=== PATIENT | female | born 1960 | race Caucasian/White ===

== ENCOUNTER 2017-04-30 08:48 | Emergency (ER) | payer OTHER ==
--- NOTE | 2017-04-30 08:57 | EDPHY ---
H & P HPI/ROS: HPI CHIEF COMPLAINT: Right dorsal wrist laceration HISTORY OF PRESENT ILLNESS: This patient 56-year-old female, significant past medical history for hepatitis-C untreated, daily tobacco use, presents emergency room as she sustained a dorsal wrist laceration 3 cm in horizontal length. She sustained this at work while hitting or wrist on a shelf. No other injuries. Her tetanus shot is not up-to-date. This happened at 2:00 a.m. or approximately 7 hours ago. She decided come the emergency room as a kept bothering her and was somewhat gaping when she thought it may need sutures. Past Medical History: Hepatitis-C untreated Past Surgical History: Denies recent surgical history Social History: Denies daily use of drugs, alcohol, does smoke tobacco daily Family History: Noncontributory ROS REVIEW OF SYSTEMS: A comprehensive 10 point review of systems is otherwise negative aside from elements mentioned in the history of present illness. Exam Constitutional appears well nontoxic triage nursing summary reviewed, vital signs reviewed, awake/alert. Eyes normal conjunctivae and sclera, EOMI, PERRLA. HENT normal inspection, atraumatic, moist mucus membranes, no epistaxis, neck supple/ no meningismus, no raccoon eyes. Respiratory clear to auscultation bilaterally, normal breath sounds, no respiratory distress, no wheezing. Cardiovascular rate normal, regular rhythm, no murmur, no edema, distal pulses normal. Gastrointestinal soft, non-tender, no rebound, no guarding, normal bowel sounds, no distension, no pulsatile mass. Genitourinary no CVA tenderness. Musculoskeletal no midline vertebral tenderness, full range of motion, no calf swelling, no tenderness of extremities, no meningismus, good pulses, neurovascularly intact. Skin dorsal right wrist: 3 cm horizontal laceration without arterial injury or tendon involvement, distally she is neurovascular intact with good radial pulse, good school occupational therapist strength, good cap refill, full range of motion, no tendon involvement pink, warm, & dry, no rash. Neurologic awake, alert and oriented x 3, AAOx3, moves all 4 extremities equally, motor intact, sensory intact, CN II-XII intact, normal cerebellar, normal vision, normal speech. Psychiatric normal mood/affect. Heme/Lymph/Immune no lymphadenopathy. Differential Diagnosis: Includes but is not limited to in a particular order: Soft tissue injury, wrist laceration, need for wound care, need for updated tetanus, delayed presentation of wrist laceration Medical Decision Making: Plan for this patient copious irrigation clean out of her wound as it is a delayed presentation, she will have sutures placed under sterile conditions performed by me. Tetanus shot will be updated. She will be started on antibiotics prophylactically due to delayed presentation. Re-evaluation: Laceration Repair Procedure: Verbal Consent was obtained, Under sterile conditions, The patient had lidocaine with epinephrine used approximately 3ccs to local anesthetize the Right Dorsal wrist 3cm Laceration. The wound was copiously irrigated with sterile fluid, the wound was explored for foreign bodies there were none visualized, the wound was explored with a sterile glove to the base. There are no deep structures involved, including no arterial injury. THREE 5.O PROLENE interrupted Sutures were placed in this patient's laceration. She had good close approximation of the wound edges. She Tolerated this well. Patient understands return emergency room in 10-12 days to have sutures removed. Also understands there is risk of this getting infected. Keep wound clean dry and protected. Take antibiotics as prescribed. Return emergency room if there is worsening symptoms or signs of infection. Source: Patient Constitutional: Initial Vital Signs Temperature (C) 36.9 C 04/30/17 08:54 Heart Rate 84 04/30/17 08:54 Respiratory Rate 20 04/30/17 08:54 Blood Pressure 117/65 04/30/17 08:54 O2 Sat (%) 96 04/30/17 08:54 O2 Delivery Mode Room Air Allergies/Adverse Reactions: No Known Allergies Allergy (Unverified 04/30/17 08:57) Home Medications: Medication Instructions Recorded Cephalexin [Keflex] 500 mg PO Q6H #28 cap 04/30/17 Departure - Departure Disposition: Home, Routine, Self-Care Clinical Impression: Laceration Condition: Good Instructions: Laceration (ED), Care For Your Stitches (ED) Additional Instructions: 1. Monitor your wound closely for infection this includes redness, drainage, swelling or pus. Worsening pain 2. Keep your wound clean dry and protected. 3. Return emergency room if you have any worsening symptoms questions or concerns. 4. Your sutures need to be removed in 10-12 days. Referrals: NONE *PRIMARY CARE P,. [Primary Care Provider] - As per Instructions Prescriptions: Cephalexin [Keflex] 500 mg PO Q6H #28 cap
[2017-04-30] MEDS ORDERED: TDAP ADULT 0.5 ML INJ (BOOSTRIX) IM ONE (09:08)
[2017-04-30 09:20] VITALS: BP 115/67; PULSE 74; RESP 18; TEMP 97.9; O2SAT 95
== END 2017-04-30 09:20 | disposition home or self-care (01) ==
LOC: CED 08:48
PROC: 0HQDXZZ Repair Right Lower Arm Skin, External Approach (ICD-10-PCS; principal; 2017-04-30)
DX: S61.511A Laceration without foreign body of right wrist, initial encounter (principal); Z23 Encounter for immunization; W22.8XXA Striking against or struck by other objects, initial encounter; Y92.69 Other specified industrial and construction area as the place of occurrence of the external cause; Y99.0 Civilian activity done for income or pay; Y93.89 Activity, other specified

== ENCOUNTER 2017-07-06 07:30 | Emergency (ER) | payer MEDICAID, OTHER ==
[2017-07-06 07:45] VITALS: RESP 18; TEMP 98
--- NOTE | 2017-07-06 07:46 | CPEKG ---
Heart Rate: 71 RR Interval: 845 P-R Interval: 144 QRSD Interval: 86 QT Interval: 400 QTC Interval: 435 P [place]: 75 QRS [place]: 97 T Wave [place]: 60 EKG Severity - OTHERWISE NORMAL ECG - EKG Impression: SINUS RHYTHM EKG Impression: BORDERLINE RIGHT AXIS DEVIATION Electronically Signed By: Ute Wren 06-Jul-2017 09:05:57
--- NOTE | 2017-07-06 08:10 | EDPHY ---
H & P Stated Complaint: c/o SOB/cough x 2 wks -Lt side CPtoday with hemoptosis Time Seen by Provider: 07/06/17 07:42 HPI/ROS: CHIEF COMPLAINT: Cough HISTORY OF PRESENT ILLNESS: This is a 56-year-old female with a history of fibromyalgia and tobacco abuse who presents with a 2-3 week history of cough. She states that this began as a routine upper respiratory infection but has persisted longer than expected. The cough has been productive of green sputum. Her sputum became blood tinged last night. She also developed left lower rib pain last night, worse with coughing or deep inspiration. She has had intermittent fever during the course of this illness with her last fever being about 2 days ago. She feels short of breath. She has had intermittent headache. She denies nausea, vomiting, diarrhea, abdominal pain, or urinary symptoms. She has not had an influenza vaccination this year. REVIEW OF SYSTEMS: A ten point review of systems was performed and is negative with the exception of the items mentioned in the HPI. Past medical history: 1. Fibromyalgia 2. Tobacco abuse, 1/2 pack of cigarettes a day since her teens Past surgical history: Orthopedic surgeries Dental extractions Family history: Father of a heart attack in his 70s Social history: She works at night in a warehouse. No alcohol use. 1/2 ppd cigarettes. No illicit drug use. She lives with roommates. General Appearance: Alert. Vital signs reviewed and normal. Room air pulse ox 92% at triage. She did become slightly tachypneic with a respiratory rate of 23 when speaking. Eyes: Pupils equal and round, no conjunctival injection, no discharge. Anicteric. ENT, Mouth: Mucous membranes are moist, no oropharyngeal erythema or edema. Edentulous. Neck: No lymphadenopathy, supple. Respiratory: Lungs with crackles at the left base and decreased air exchange. Clear on the right. Cardiovascular: Regular rate and rhythm; no murmur, rub, or gallop. Gastrointestinal: Abdomen is soft and nontender, no masses or organomegaly, bowel sounds normal. Skin: Warm and dry, no rashes on exposed skin, normal color. Back: Nontender to palpation over the thoracolumbar spine. No CVAT. Extremities: No lower extremity edema, no calf tenderness or swelling. Neurological: Alert and oriented. Moving all four extremities easily and equally. KALPESH. EOMI. Facial expressions symmetric. Tongue midline. Psychiatric: Normal affect. Source: Patient - Personal History Current Tetanus Diphtheria and Acellular Pertussis (TDAP): Yes - Medical/Surgical History Other PMH: ANKLE, KNEE, HAND SURGERY - Social History Smoking Status: Current every day smoker Constitutional: Initial Vital Signs Temperature (C) 36.6 C 07/06/17 07:40 Heart Rate 85 07/06/17 07:40 Respiratory Rate 18 07/06/17 07:40 Blood Pressure 101/65 07/06/17 07:40 O2 Sat (%) 92 07/06/17 07:40 O2 Delivery Mode Room Air Allergies/Adverse Reactions: No Known Allergies Allergy (Unverified 04/30/17 08:57) Home Medications: Medication Instructions Recorded Cephalexin [Keflex] 500 mg PO Q6H #28 cap 04/30/17 Medical Decision Making - Diagnostics EKG Interpretation: 12 lead EKG is interpreted in Trace master View by emergency department physician. No acute ischemic findings. Imaging Results: Imaging Impressions Chest X-Ray 07/06/17 08:06 Impression: 1. Left lower lobe consolidation/pneumonia. ED Course/Re-evaluation: 56-year-old with a history of tobacco abuse who presents with persistent cough, hemoptysis, and rib pain. History and Physical exam suggests pneumonia. DuoNeb was administered. Re-evaluation following the DuoNeb reveals persistent left lower lobe crackles. Pulse ox 87% on room air. Two-view chest x-ray reveals left lower lobe infiltrate. I am recommending hospitalization. IV ceftriaxone and azithromycin have been ordered. Respiratory pathogen panel obtained. She would like to be transferred to [facility]. I have spoken with the hospitalist service and made arrangements for her to be admitted to [facility]. The accepting physician is Dr. Marie Burgos. I have completed the EMTALA form. She is resting comfortably at discharge. She is on nasal cannula oxygen with pulse oximetry readings in the mid 90s. Differential Diagnosis: Shortness of breath including but not limited to pulmonary infectious process, COPD, asthma, pulmonary embolus, pneumothorax, ACS, and congestive heart failure. - Data Points Laboratory Results: Laboratory Results 07/06/17 08:05 07/06/17 08:05 07/06/17 07/06/17 07/06/17 08:05 08:05 08:05 WBC 7.76 10^3/uL 10^3/uL (3.80-9.50) RBC 4.18 10^6/uL 10^6/uL (4.18-5.33) Hgb 12.4 g/dL L g/dL (12.6-16.3) Hct 37.6 % L % (38.0-47.0) MCV 90.0 fL fL (81.5-99.8) MCH 29.7 pg pg (27.9-34.1) MCHC 33.0 g/dL g/dL (32.4-36.7) RDW 13.5 % % (11.5-15.2) Plt Count 325 10^3/uL 10^3/uL (150-400) MPV 9.1 fL fL (8.7-11.7) Neut % (Auto) 64.3 % % (39.3-74.2) Lymph % (Auto) 27.2 % % (15.0-45.0) Cedar % (Auto) 6.8 % % (4.5-13.0) Eos % (Auto) 0.8 % % (0.6-7.6) Baso % (Auto) 0.5 % % (0.3-1.7) Nucleat RBC Rel Count 0.0 % % (0.0-0.2) Absolute Neuts (auto) 4.99 10^3/uL 10^3/uL (1.70-6.50) Absolute Lymphs (auto) 2.11 10^3/uL 10^3/uL (1.00-3.00) Absolute Monos (auto) 0.53 10^3/uL 10^3/uL (0.30-0.80) Absolute Eos (auto) 0.06 10^3/uL 10^3/uL (0.03-0.40) Absolute Basos (auto) 0.04 10^3/uL 10^3/uL (0.02-0.10) Absolute Nucleated RBC 0.00 10^3/uL 10^3/uL (0-0.01) Immature Gran % 0.4 % % (0.0-1.1) Immature Gran # 0.03 10^3/uL 10^3/uL (0.00-0.10) D-Dimer 0.31 ug/mLFEU ug/mLFEU (0.00-0.50) Sodium 137 mEq/L mEq/L (134-144) Potassium 4.1 mEq/L mEq/L (3.5-5.2) Chloride 106 mEq/L mEq/L (97-110) Carbon Dioxide 23 mEq/l mEq/l (22-31) Anion Gap 8 mEq/L mEq/L (8-16) BUN 19 mg/dL mg/dL (7-23) Creatinine 0.6 mg/dL mg/dL (0.6-1.0) Estimated GFR > 60 Glucose 94 mg/dL mg/dL (70-100) Calcium 9.0 mg/dL mg/dL (8.5-10.4) Troponin I < 0.012 ng/mL ng/mL (0.000-0.034) Medications Given: Azithromycin 500 mg/ Sodium (Chloride) 255 mls @ 255 mls/hr IV EDNOW ONE PRN Reason: Protocol Stop: 07/06/17 09:50 Last Admin: 07/06/17 09:20 Dose: 255 mls Discontinued Medications Albuterol/Ipratropium (Duoneb) 3 ml IH EDNOW ONE Stop: 07/06/17 08:26 Last Admin: 07/06/17 08:30 Dose: 3 ml Ceftriaxone Sodium 1 gm/ (Sodium Chloride) 100 mls @ 200 mls/hr IV EDNOW ONE PRN Reason: Protocol Stop: 07/06/17 09:20 Last Admin: 07/06/17 09:18 Dose: 100 mls Departure - Departure Disposition: Acute Care Hospital [facility] Clinical Impression: Pneumonia Qualifiers: Pneumonia type: due to unspecified organism Laterality: left Lung location: lower lobe of lung Qualified Code(s): J18.1 - Lobar pneumonia, unspecified organism Condition: Fair Referrals: ANDERSON,FARZAD [Other] - As per Instructions
[2017-07-06 08:11] LABS: % IMMATURE GRANULYOCYTES 0.4 % (0.0-1.1); ABSOLUTE IMMATURE GRANULOCYTES 0.03 10^3/uL (0.00-0.10); ADD DIFF? NO; ADD MORPH? NO; ADD SCAN? NO; ATYPICAL LYMPHOCYTE FLAG 10 (0-99); FRAGMENT RBC FLAG 0 (0-99); HEMATOCRIT 37.6 % (38.0-47.0); HEMOGLOBIN 12.4 g/dL (12.6-16.3); LEFT SHIFT FLG 0 (0-99); LIPEMIA HEMOLYSIS FLAG 80 (0-99); MEAN CELL HEMOGLOBIN 29.7 pg (27.9-34.1); MEAN PLATELET VOLUME 9.1 fL (8.7-11.7); PLATELET CLUMPS FLAG 0 (0-99); PLATELET COUNT 325 10^3/uL (150-400); RED BLOOD CELL COUNT 4.18 10^6/uL (4.18-5.33); RED CELL DISTRIBUTION WIDTH 13.5 % (11.5-15.2)
[2017-07-06] MEDS ORDERED: IPRATROPIUM/ALBUTEROL 3 ML DEYVIAL IH ONE (08:25)
[2017-07-06 08:38] LABS: TROPONIN I < 0.012 ng/mL (0.000-0.034)
[2017-07-06] MEDS ORDERED: AZITHROMYCIN IV 500 MG in NS 250 ML IV ONE (08:51)
[2017-07-06 09:07] LABS: ANION GAP 8 mEq/L (8-16); CARBON DIOXIDE 23 mEq/l (22-31); CHLORIDE 106 mEq/L (97-110); CREATININE 0.6 mg/dL (0.6-1.0); GLOMERULAR FILTRATION RATE > 60; GLUCOSE 94 mg/dL (70-100); POTASSIUM 4.1 mEq/L (3.5-5.2); SODIUM 137 mEq/L (134-144)
[2017-07-06 10:42] VITALS: O2SAT 97
[2017-07-06 10:46] VITALS: BP 112/62; PULSE 62
== END 2017-07-06 10:43 | disposition short-term general hospital (02) ==
LOC: CED 07:30
DX: J18.9 Pneumonia, unspecified organism (principal); F17.210 Nicotine dependence, cigarettes, uncomplicated
CPT/HCPCS: 71020-PO; 80048-PO; 84484-PO; 85025-PO; 85378-PO; 96365; J0456; J0696